=== PATIENT | female | born 1960 | race Caucasian/White ===

== ENCOUNTER 2025-01-18 10:36 | Outpatient (REF) | payer OTHER, SELFPAY ==
[2025-01-18 12:59] LABS: MANUAL DIFF FLAG NO
[2025-01-18 13:21] LABS: Basophils Absolute Auto 0.1 X10*3/uL (0.0-0.2); Basophils Percent Auto 0.6 % (0-2); Eosinophils Percent Auto 0.4 % (0-4); Hematocrit 41.5 % (37.0-47.0); Hemoglobin 13.6 g/dl (12.0-16.0); Imm Gran Abs Auto 0.02 X10*3/uL (0.00-0.03); Imm Gran Pct Auto 0.2 % (0.0-0.4); Lymphocytes Absolute Auto 0.8 X10*3/uL (1.2-4.9); Lymphocytes Percent Auto 9.4 % (20-40); Mean Corpuscular HGB Conc 32.8 g/dl (31.0-35.0); Mean Corpuscular Hemoglobin 28.8 pg (27.0-33.0); Mean Corpuscular Volume 87.9 fL (80.0-98.0); Mean Platelet Volume 9.4 fL (9.4-12.3); Monocytes Absolute Auto 0.7 X10*3/uL (0.1-1.2); Monocytes Percent Auto 8.1 % (2-11); Neutrophils Absolute Auto 6.9 x10*3/uL (2.0-8.3); Neutrophils Percent Auto 81.3 % (45-73); Platelet Count 443 X10*3/uL (160-400); Red Blood Count 4.72 X10*6/uL (4.20-5.50); Red Cell Distribution Width 11.9 % (11.0-16.0); White Blood Count 8.5 X10*3/uL (4.8-10.8)
[2025-01-18 13:43] LABS: Alanine Aminotransferase 46 U/L (0-31); Albumin Level 3.9 g/dL (3.5-5.0); Alkaline Phosphatase 134 U/L (39-117); Anion Gap 12 (12-20); Aspartate Amino Transferase 58 U/L (5-31); Bilirubin Direct 0.5 mg/dL (0.0-0.5); Bilirubin Total 1.1 mg/dL (0.0-1.0); Blood Urea Nitrogen 5 mg/dL (9-16); C Reactive Protein 2.03 mg/dL (< or = 0.50); Calcium 8.9 mg/dL (8.4-10.2); Carbon Dioxide 27 mmol/L (22-29); Chloride 103 mmol/L (96-108); Estimated Glomerular Filt Rate > 60; Glucose Random 110 mg/dL (60-115); Magnesium 2.1 mg/dL (1.6-2.6); Potassium 3.8 mmol/L (3.3-5.1); Sodium 138 mmol/L (135-145); TSH reflex Free T4 0.98 uIU/mL (0.32-4.0); Total Protein 7.5 g/dL (6.5-8.0); Vitamin D 25-OH Total 7.4 ng/mL (>30)
[2025-01-18 14:07] LABS: Estimated Average Glucose 97 mg/dL; Hemoglobin A1C 117.2712 umol/L
[2025-01-18 14:14] LABS: Erythrocyte Sedimentation Rate 38 MM/HR (0-20)
[2025-01-18 14:21] LABS: Folate 7.7 ng/mL (> or = 4.0); Vitamin B12 468 pg/mL (200-900)
== END 2025-01-18 10:37 | disposition home or self-care (01) ==
LOC: HO.HMGCLDS 10:36
PROVIDERS: PCP Internal Medicine; Visit Provider Physician Assistant Medical
DX: Z76.89 Persons encountering health services in other specified circumstances (principal); R07.89 Other chest pain; Z13.1 Encounter for screening for diabetes mellitus
CPT/HCPCS: 36415; 80053; 82248; 82306; 82550; 82607; 82746; 83036; 83735; 84443; 85025; 85652; 86140; 93005; 96127

== ENCOUNTER 2025-01-18 10:36 | Outpatient (AMB) | payer OTHER, SELFPAY ==
--- NOTE | 2025-01-18 10:48 | MHC.PC.OV ---
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 Accompanied by: Self / Same As Patient Allergies sulfamethoxazole [From Bactrim] Allergy (Mild, Verified 01/18/25 11:10) Vomiting trimethoprim [From Bactrim] Allergy (Mild, Verified 01/18/25 11:10) Vomiting vancomycin Allergy (Mild, Verified 01/18/25 11:10) Palpitations Penicillins Allergy (Unknown, Verified 01/18/25 11:10) Unknown Medication List - Last Reconciled 01/18/25 by Omayra Carter PA-C No Known Home Meds Tobacco use date assessed: 01/18/25 Dental Screening Dental Screen Date: 01/18/25 Did you have a dental visit in the last 12 months?: No Did you have a dental problem in the last 6 months where you did not have access to dental care?: No Was dental information given to patient?: Patient has dentist HPI establish care; recurring chest tightness HPI Details This is a 64-year-old female presenting with chest pain and associated symptoms. The pain began abruptly waking her from her sleep and was described as severe, with her heart and chest feeling as though they were in a vice-like criminal justice instructor. Accompanying symptoms include nausea, vomiting, hot flashes and clamminess, which lasted until the afternoon of the same day. She reports this was on Saturday [place] which lasted approximately 2-3 days. She reports that similar episodes have occurred in the past often during times of high stress. For 2 days following the acute pain, the patient experienced chest pressure, feeling as though there was in ?air bubble? sensation. Her diet was significantly limited during this period. She also notices persistent fatigue and lack of motivation that developed after the episode, describing significant tiredness that is uncharacteristic for her. She denies any chest pain at this time. She reports the chest pain has not returned since last week Saturday. She denies any of the symptoms returning since last week Saturday. Although she reports she still has significant fatigue and no energy to do anything at this time. She reports ?I feel like something is wrong?. She reports intermittent lightheadedness along with this intermittent chest pain. She denies any dizziness at this time, paresthesias, jaw pain, chest pain at this time, shortness of breath, dyspnea on exertion, orthopnea, abdominal pain, back or flank pain, lower extremity edema or calf tenderness, rashes, recent falls or trauma or any other symptoms complaints or concerns related to this. Social History - Cardiovascular: Reports intermittent chest pain; Denies leg swelling or shortness of breath with activity or at rest. - Gastrointestinal: Reports nausea and vomiting during the episode; Denies abdominal pain or changes in bowel habits. - General: Reports fatigue, lack of motivation; Denies fever or unexplained weight loss. - Neurological: Denies numbness, tingling, or dizziness. - Psychiatric: Reports stress and feeling overwhelmed. [facility] Medical History Measles Heart murmur Establishing care with new doctor, encounter for Chest pressure Family History Father No problems noted. Mother Cancer Breast cancer Social History Housing: House Alcohol intake: current Alcohol intake frequency: does not drink Patient Tobacco Use Status: Never used Tobacco service: No Current occupational status: retired Cognitive needs: No Hearing needs: No Vision needs: Yes (rx glasses) Questionnaire PHQ-9 Over the last 2 weeks, how often have you been bothered by any of the following problems? 1. Little interest or pleasure in doing things: not at all 2. Feeling down, depressed, or hopeless: not at all 3. Trouble falling or staying asleep, or sleeping too much: not at all 4. Feeling tired or having little energy: not at all 5. Poor appetite or overeating: not at all 6. Feeling bad about yourself - or that you are a failure or have let yourself or your family down: not at all 7. Trouble concentrating on things, such as reading the newspaper or watching television: not at all 8. Moving or speaking so slowly that other people could have noticed. Or the opposite - being so fidgety or restless that you have been moving around a lot more than usual: not at all 9. Thoughts that you would be better off or of hurting yourself in some way: not at all Total score: 0 Depression Screening Interpretation: Negative Depression Screening Done: Yes 65040 - PHQ-9 Billing: Yes Source: Developed by Drs. Eric Cortes, Bebe Ortiz, Franklyn Sandy and colleagues, with an educational frank from [employer] [address]. Thrive Questionnaire Date Thrive assessed: 01/18/25 I am a: Patient What is your living situation today?: I have a steady place to live Within the past 12 months, did the food you bought not last and you didn't have the money to get more?: Never true Within the past 12 months, did you worry whether your food would run out before you got money to buy more?: Never true Do you have trouble paying for medicines?: No Do you have trouble getting transportation to medical appointments?: No Do you have trouble paying your heating and electricity bill?: No Do you have trouble taking care of your child, family member or friend?: No Do you have trouble with day-to-day activities such as bathing, preparing meals, shopping, managing finances, etc.?: No Are you currently unemployed and looking for a job?: No Are you interested in more education?: No Please select the resources that you would like help with: None THRIVE Score: 0 AUDIT C Alcohol Use Questionnaire (AUDIT-C) 1. How often do you have a drink containing alcohol?: Never 3. How often do you have six or more drinks on one occasion?: Never Total Score: 0 Score Reviewed/Action Taken: No DARIUSZ-7 AMB Questionnaire DARIUSZ-7 Date DARIUSZ - 7 assessed: 01/18/25 Feeling nervous, anxious, or on edge: 3 = Nearly every day Not being able to stop or control worryin = More than half the days Worrying too much about different things: 3 = Nearly every day Trouble relaxin = Several days Being so restless that it is hard to sit still: 1 = Several days Becoming easily annoyed or irritable: 1 = Several days Feeling afraid as if something awful might happen: 1 = Several days Total DARIUSZ-7 score (0-4 normal; 5-9 mild; 10-14 moderate; 15-21 severe): 12 Source: Developed by Drs. Eric Cortes, Bebe Ortiz, Franklyn Sandy and colleagues, with an educational frank from [employer] [address]. DARIUSZ-7 Assessment Billing DARIUSZ-7 Assessment Tool: DARIUSZ-7 Assessment 98838 Review of Systems Const Details: - Cardiovascular: Reports chest pain; Denies leg swelling or shortness of breath with activity or at rest. - Gastrointestinal: Reports nausea and vomiting during the episode; Denies abdominal pain or changes in bowel habits. - General: Reports fatigue, lack of motivation; Denies fever or unexplained weight loss. - Neurological: Denies numbness, tingling, or dizziness. - Psychiatric: Reports stress and feeling overwhelmed. Physical exam (Primary Care) Vital Signs: Last Vital Signs Temp 98.2 F 01/18/25 10:53 Pulse 110 H 01/18/25 10:53 Resp 16 01/18/25 10:53 BP 134/66 01/18/25 10:53 Pulse Ox 98 01/18/25 10:53 Oxygen Delivery Method Room Air 01/18/25 10:53 Care Plan Goal for BP management: 130/90 at Goal BMI result Body Mass Index 30.9 BMI Assessment/Plan discussion: High BMI High, discussed plan: lifestyle, weight reduction, dietary, physical activity and alcohol moderation Tobacco/Smoking Status: Tobacco use Status Tobacco use date assessed 01/18/25 01/18/25 10:53 Patient Tobacco Use Status Never used Tobacco 01/18/25 11:01 PHQ-9: PHQ-9 Score PHQ-9: Total score 0 01/18/25 11:12 Depression Screening Interpretation: Negative Thrive Assessment: Date of Thrive Assessment Date Thrive assessed 01/18/25 01/18/25 10:53 Const Other: Appearance: Alert. Oriented X3. No acute distress. Head: Normal external exam. Normocephalic. Atraumatic. Eyes: Pupils are equal, round, and reactive to light. Extraocular movements intact. Conjunctiva and sclera normal. Eyelids normal. Ears: External auditory canal normal. Tympanic membranes normal. Throat: Pharynx normal. Uvula midline. Moist mucous membranes. Neck: Normal inspection. Neck supple. Full range of motion. No adenopathy. Thyroid Normal. No meningeal signs. No neck mass noted. Cardiovascular: Heart rate is fast. Heart sound normal. No murmurs noted. Pulses normal throughout. Respiratory: No respiratory distress. Painless inspiration. Breath sounds normal. No wheezes/rales/rhonchi noted. Chest nontender. No accessory muscle usage noted or decreased air movement noted. Abdomen: Soft and nontender. Bowel sounds normal in all 4 quadrants. No distention noted. No organomegaly noted. No visible injury noted. Back: No costovertebral angle tenderness. Full range of motion noted. Skin: Skin warm and dry. Normal skin color. Normal skin turgor. No rashes/lesions/lacerations noted. Extremities: No lower extremity edema. Extremities exhibit normal range of motion. Extremities nontender. Neuro: Oriented X 3. No motor deficit. No sensory deficit. Reflexes normal. Coding Level of Care Code New Pt Level 4 (53526) Complex EM visit Add On G2211 Diagnoses Establishing care with new doctor, encounter for Z76.89 Chest pressure R07.89 Additional Codes DARIUSZ-7 Assessment Billing - DARIUSZ-7 Assessment Tool: DARIUSZ-7 Assessment 70766 ([id number]) PHQ-9 - 20671 - PHQ-9 Billing: Yes ([id number]) Assessment & Plan Assessment & Plan (1) Establishing care with new doctor, encounter for: Code(s): Z76.89 - Persons encountering health services in other specified circumstances Category: Medical Plan: Patient has not seen a primary care provider in over 30 years. Will order labs, EKG, echocardiogram, stress test and patient to return in 1 month for further evaluation and management. (2) Chest pressure: Code(s): R07.89 - Other chest pain Category: Medical Plan: An Electrocardiogram (EKG) will be performed to evaluate cardiac function. Blood work will be conducted to check for markers indicating cardiac stress. The patient is advised to seek immediate care if another episode of chest pain occurs. Is intermittent not present at this time and stable will continue to monitor. Patient advised to go to the emergency department if chest pain and other symptoms returned. Patient understands. Plan Plan Patient was informed and verbally consented to the use of an ambient scribe for clinic note documentation during this visit. 1. Chest Pain An Electrocardiogram (EKG) will be performed to evaluate cardiac function. Blood work will be conducted to check for markers indicating cardiac stress. The patient is advised to seek immediate care if another episode of chest pain occurs. During the visit, I discussed with the patient that the chest pain episodes, especially those waking her from sleep, raise concerns for potential cardiac issues. We reviewed the necessity of performing an EKG and related blood tests to rule out cardiac involvement. I emphasized the importance of visiting the Emergency Room promptly should she experience a similar severe episode. We also talked about stress as a potential trigger, given her caregiving responsibilities, and the need for lifestyle adjustments focusing on self-care. Orders: Orders Hemoglobin A1c Today Z00.00 - Encounter for general adult medical examination without abnormal findings TSH reflex Free T4 Today Z00.00 - Encounter for general adult medical examination without abnormal findings Vitamin D 25-OH Total Today Z00.00 - Encounter for general adult medical examination without abnormal findings Vitamin B12 and Folate Today Z00.00 - Encounter for general adult medical examination without abnormal findings C Reactive Protein Today Z00.00 - Encounter for general adult medical examination without abnormal findings CA stress test Today R01.1 - Cardiac murmur, unspecified, R07.89 - Other chest pain AMB EKG-In Office Today R07.89 - Other chest pain, Z76.89 - Persons encountering health services in other specified circumstances Complete Blood Count Auto Diff Today Z00.00 - Encounter for general adult medical examination without abnormal findings Liver Panel Today Z00.00 - Encounter for general adult medical examination without abnormal findings Comprehensive Met. Panel Today Z00.00 - Encounter for general adult medical examination without abnormal findings Magnesium Today Z00.00 - Encounter for general adult medical examination without abnormal findings Erythrocyte Sedimentation Rate Today Z00.00 - Encounter for general adult medical examination without abnormal findings Creatine Kinase Total Today Z00.00 - Encounter for general adult medical examination without abnormal findings CA echo transthoracic complete Today R01.1 - Cardiac murmur, unspecified, R07.89 - Other chest pain XR chest 2V Today R01.1 - Cardiac murmur, unspecified, R07.89 - Other chest pain US carotid duplex BI Today R01.1 - Cardiac murmur, unspecified, R07.89 - Other chest pain Medications: New aspirin 325 mg PO DAILY 90 tabs 1RF Patient Instructions: - Seek immediate medical care if chest pain recurs, particularly if it is severe or wakes you from sleep. - Follow through with scheduled EKG and blood testing. - Reduce stress and focus on self-care. - Maintain a balanced diet and avoid fast food. - Report any new or worsening symptoms immediately.
[2025-01-18 10:53] VITALS: BP 134/66; PULSE 110; RESP 16; TEMP 36.8; O2SAT 98; BMI 30.9
== END 2025-01-18 11:46 | disposition home or self-care (01) ==
LOC: HO.HMCSH 10:36
PROVIDERS: PCP Internal Medicine; Visit Provider Physician Assistant Medical
DX: Z76.89 Persons encountering health services in other specified circumstances (principal); R07.89 Other chest pain

== ENCOUNTER 2025-02-04 12:50 | Outpatient (REF) | payer OTHER, SELFPAY ==
--- NOTE | ~2025-02-04 | US_ITS ---
EXAMINATION: BILATERAL CAROTID ULTRASOUND WITH DOPPLER HISTORY: R01.1 - Cardiac murmur, unspecified COMPARISON: There are no prior studies for comparison. TECHNIQUE: Real time and Color and Spectral doppler ultrasonography of the carotid and vertebral arteries was performed in multiple planes. FINDINGS: No significant plaque is seen in either internal carotid artery. VERTEBRAL FLOW DIRECTION: Antegrade bilaterally. PEAK SYSTOLIC VELOCITIES (in cm/sec): RIGHT: CCA: Prox: 92 Dist: 151 ICA: Prox: 110 Mid: 105 Dist: 102 ICA/CCA Ratio: 0.73 ECA: 127 Peak ICA end diastolic velocity (EDV): 40 LEFT: CCA: Prox: 149 Dist: 112 ICA: Prox: 97 Mid: 124 Dist: 112 ICA/CCA Ratio: 0.83 ECA: 86 Peak ICA end diastolic velocity (EDV): 40 US/US carotid duplex BI IMPRESSION: Unremarkable carotid ultrasound. Electronically signed by: Eric Knutson MD 02/04/2025 01:45 PM EDT
--- NOTE | ~2025-02-04 | XR_ITS ---
EXAMINATION: XR CHEST 2 VIEWS HISTORY: R01.1 - Cardiac murmur, unspecified COMPARISON: There are no prior studies for comparison. FINDINGS: PA and lateral views of the chest are submitted. The lungs are expanded and clear. There is no pleural effusion, pneumothorax, or pulmonary vascular congestion. The heart is normal in size. There is levoscoliosis of the upper thoracic spine. XR/XR chest 2V IMPRESSION: Clear lungs. Electronically signed by: Eric Knutson MD 02/04/2025 02:19 PM EDT
== END 2025-02-04 12:51 | disposition home or self-care (01) ==
LOC: HO.HMGCX 12:50
PROVIDERS: PCP Internal Medicine; Visit Provider Physician Assistant Medical
DX: R01.1 Cardiac murmur, unspecified (principal); R07.89 Other chest pain; I65.29 Occlusion and stenosis of unspecified carotid artery; I70.90 Unspecified atherosclerosis; R42 Dizziness and giddiness; R55 Syncope and collapse; R09.89 Other specified symptoms and signs involving the circulatory and respiratory systems; R22.1 Localized swelling, mass and lump, neck
CPT/HCPCS: 71046; 93880

== ENCOUNTER → 2025-02-04 12:55 | Outpatient (BNV) | payer OTHER, SELFPAY | PROVIDERS: PCP Internal Medicine; Visit Provider Radiology Diagnostic Radiology | DX: R01.1 Cardiac murmur, unspecified (principal); M41.34 Thoracogenic scoliosis, thoracic region | CPT/HCPCS: 71046; 93880 ==

== ENCOUNTER → 2025-02-11 13:40 | Outpatient (REF) | payer OTHER, SELFPAY ==
--- NOTE | 2025-02-11 13:42 | CA_ITS ---
Transthoracic Echocardiogram Patient (Last, First, Middle): Karen Cotton, Gender: Female Date of : 1960 Age: 64 Procedure Date: 02/11/2025 Procedure Type: Transthoracic Echocardiogram Location: OP Height: 149.86 cm Weight: 69.4 kg BSA: 1.65 m2 Heart Rate: bpm BP: 134 / 66 mmHg Campaign Marketing Manager: MARCEL Referring MD: Omayra Carter PA-C Classification Case Manager: Jose Antonio Glover MD Symptoms: R01.1 - Cardiac murmur, unspecified Study Quality: Fair ECG Rhythm: Sinus Conclusions: - 1. Normal LV ejection fraction 55-60% with grade 1 diastolic dysfunction 2. Normal cardiac valvular Dopplers 3. Normal RV systolic pressure 4. No gross pericardial effusion Findings Left Ventricle Normal left ventricular size, thickness, and systolic function. The visually estimated ejection fraction is between 55-60%. Spectral Doppler is indicative of an impaired relaxation filling pattern. E/E prime ratio is <8, consistent with normal filling pressures. Evidence suggests grade I (mild) diastolic dysfunction. Right Ventricle Normal right ventricular cavity size and systolic function. Atria Both atria are normal in size. Interatrial shunt cannot be excluded. Aortic Valve The aortic valve structure and function is likely normal. There is no aortic valve stenosis. There is no aortic valve regurgitation. Mitral Valve Likely normal mitral valve structure and function. There is trace mitral valve regurgitation. There is no mitral valve stenosis. Pulmonic Valve The pulmonic valve was not well visualized. Tricuspid Valve Likely normal tricuspid valve structure and function. There is trace tricuspid valve regurgitation. The right ventricular systolic pressure is normal. The right ventricular systolic pressure is 28 mmHg. Normal right atrial pressure. There is no evidence of pulmonary hypertension. Great Vessels All visible segments of the aorta are normal in size. The pulmonary artery was not well visualized. There is no dilatation of the ascending aorta. Venous The inferior vena cava is normal in size and collapses greater than 50% with inspiration. Pericardium/Pleural There is no evidence of pericardial effusion. Prior Study Comparison No prior study available for comparison. Measurements 2D Linear Measurements IVSd: 0.80 0.6-0.9/0.6-1.0 cm LVIDd: 3.94 3.9-5.3/4.2-5.9 cm LVIDd Index: 2.39 2.4-3.2/2.2-3.1 cm/m2 LVIDs: 2.76 2.0-3.6 cm LVPWd: 0.56 0.7-1.1 cm LA Diam: 3.10 2.7-3.8/3.0-4.0 cm LAIDs Index: 1.88 1.5-2.3 cm/m2 LV Mass: 91.13 67-162/88-224 g LV Mass Index: 55.23 43-95/49-115 g/m2 LVOT Diam: 1.90 3.0+(-)1.3 cm 2D Systolic Function EF 4C: 53.60 >55% EF 2C: 58.60 >55% EF BiP: 56.60 >55% Mitral Valve MV Pk E: 0.89 MV PK A: 0.81 MV Decel Time: 151.00 E/A: 1.10 E'Lateral: 9.90 E'Medial: 9.68 E/E' Med: 9.20 E/E' Lat: 9.00 PHT: 44.00 MVA PHT: 5.00 Decel Yates: 5.90 Aortic Valve AoV Pk Narciso: 1.43 AoV Mn Narciso: 0.96 AoV VTI: 0.32 AoV Pk Grad: 8.00 Aov Mn Grad: 4.00 TAY Cont.VTI: 1.84 LVOT LVOT Pk Narciso: 0.85 LVOT Mn Narciso: 0.60 LVOT VTI: 0.21 LVOT Pk Grad: 3.00 LVOT Mn Grad: 2.00 LVOT Diam: 1.90 LVOT Area: 2.84 Diastolic Function MV Pk E: 0.89 MV Pk A: 0.81 E/A: 1.10 E'Medial: 9.68 E/E' Med: 9.20 E' Laterial: 9.90 E/E' Lat: 9.00 Right Ventricle TAPSE (mm): 20.80 TVS' Narciso: 10.40 Tricuspid Valve TR Pk Narciso: 2.50 TR Pk Grad: 25.00 RA Press: 3.00 RVSP: 28.00 Great Vessels Aorta Sinus of Valsalva: 2.22 2.0-3.[address] Ridge: 1.92 1.7-3.4 cm Ao Asc: 2.50 2.1-3.4 cm Ao Arch: 2.40 Updated in Other Vendor System with Status of Final Jose Antonio Glover MD electronically signed on 02/11/2025 4:07:06 PM with status of Final
== END ==
LOC: HO.CARD 13:40
PROVIDERS: Visit Provider Physician Assistant Medical
DX: R01.1 Cardiac murmur, unspecified (principal); R07.89 Other chest pain
CPT/HCPCS: 93306

== ENCOUNTER → 2025-02-11 13:42 | Outpatient (BNV) | payer OTHER, SELFPAY | PROVIDERS: Visit Provider Internal Medicine Cardiovascular Disease | DX: I51.89 Other ill-defined heart diseases (principal); R01.1 Cardiac murmur, unspecified | CPT/HCPCS: 93306 ==

== ENCOUNTER → 2025-03-01 10:19 | Outpatient (REF) | payer OTHER, SELFPAY ==
--- NOTE | 2025-03-01 10:22 | CA_ITS ---
Acquisition Time: 2025-03-01 10:27:32 Total Exercise Time: 00:05:01 Test Indications: CP Medications: SEE H&P Protocol: ISABELL Max HR: 255 BPM 162% of Pred: 157 BPM Max BP: 150/60 mmHG Max Work Load: 4.6 METS Exercise stress test with exercise 5 mins 1 sec of Isaebll Protocol, held at Stage 1 due to very brisk HR, achieving 110% MPHR, with reports of mild SOB, no chest pain, with 27 beats of NSVT- asymptomatic, with hypotensive response during exercise, that improved in recovery. Without any EKG changes meeting criteria for ichemia. In recovery, breathing returned to baseline. Will expedite pt's office visit with Cardiology. Test reviewed with Dr. Núñez. Referred By: Omayra Carter Electronically Signed By: Odell Vila
== END ==
LOC: HO.CARD 10:19
PROVIDERS: PCP Internal Medicine; Visit Provider Physician Assistant Medical
DX: R07.89 Other chest pain (principal); R01.1 Cardiac murmur, unspecified
CPT/HCPCS: 93017

== ENCOUNTER → 2025-03-01 10:22 | Outpatient (BNV) | payer OTHER, SELFPAY | PROVIDERS: PCP Internal Medicine | DX: R06.02 Shortness of breath (principal); I47.20 Ventricular tachycardia, unspecified | CPT/HCPCS: 93016; 93018 ==

== ENCOUNTER → 2025-03-04 07:25 | Outpatient (REF) | payer OTHER, SELFPAY | LOC: HO.CARD 07:25 | PROVIDERS: Visit Provider Physician Assistant Medical | DX: R07.89 Other chest pain (principal) | CPT/HCPCS: 93242 ==

== ENCOUNTER → 2025-03-04 07:28 | Outpatient (BNV) | payer OTHER, SELFPAY | PROVIDERS: Visit Provider Internal Medicine | DX: I47.10 Supraventricular tachycardia, unspecified (principal); I49.3 Ventricular premature depolarization | CPT/HCPCS: 93244 ==

== ENCOUNTER 2025-03-08 14:43 | Outpatient (AMB) | payer OTHER, SELFPAY ==
[2025-03-08 14:49] VITALS: BP 118/62; PULSE 78; BMI 31.2
--- NOTE | 2025-03-08 14:49 | A.OFFVIS_ITS ---
Vital Signs 03/08/25 14:49 Height 4 ft 11 in Weight 154 lb 5.177 oz BMI 31.2 BP 118/62 Blood Pressure Location Lt brachial Position Sitting Pulse 78 Pulse Source Pulse Oximeter Intake Visit Reasons: [employer]/ Omayra Carter/ abn ekgs Allergies sulfamethoxazole [From Bactrim] Allergy (Mild, Verified 01/19/25 17:10) Vomiting trimethoprim [From Bactrim] Allergy (Mild, Verified 01/19/25 17:10) Vomiting vancomycin Allergy (Mild, Verified 01/19/25 17:10) Palpitations aspirin Allergy (Unknown, Verified 01/19/25 17:10) Unknown Penicillins Allergy (Unknown, Verified 01/19/25 17:10) Unknown Medication List - Last Reconciled 03/08/25 by Obdulio Núñez MD cholecalciferol (vitamin D3) 25 mcg PO DAILY HPI Comments Details: Karen is here for consultation regarding chest discomfort and palpitations. No previous cardiac history. No known coronary disease myocardial infarction or cardiomyopathy. However, the child she was apparently told to have a hole in the heart. She has been having episodes of squeezing sensation in the chest that has been going on for a long time, months and possibly years. However, they almost always happen only at nighttime and she has never had any daytime episodes. She also gets sensations of heart fluttering at different times which can happen during the day or night. No clear exertional patterns for any of her symptoms. She underwent a recent ETT when there was question of ventricular tachycardia during the test but she herself did not really have any overt sympto ms from that. She has been referred here for further evaluation. [facility] Medical History (Updated 03/08/25 @ 15:16 by Obdulio Núñez MD) Diastolic dysfunction Vitamin D deficiency Measles Establishing care with new doctor, encounter for Chest pressure Family History Father No problems noted. Mother Cancer Breast cancer Social History Housing: House Alcohol intake: current Alcohol intake frequency: does not drink Patient Tobacco Use Status: Never used Tobacco service: No Current occupational status: retired Cognitive needs: No Hearing needs: No Vision needs: Yes (rx glasses) Review of Systems Const Denies weakness ENT Denies dizziness Card Denies chest pain, Denies chest pain with activity, Denies syncope, Denies rapid heart rate, Denies pedal edema, Denies edema, Denies leg edema, Denies lightheadedness, Reports palpitations, Denies dyspnea, Denies dyspnea on exertio n and Denies orthopnea Resp Denies cough, Denies dyspnea and Denies dyspnea on exertion GI Denies hematochezia and Denies change in stool character Musc Denies abnormal gait, Denies muscle cramps, Denies muscle weakness, Denies numbness, Denies radiating pain into limb and Denies tingling Neuro Denies abnormal gait, Denies dizziness, Denies syncope, Denies numbness, Denies tingling and Denies weakness Endo Reports palpitations Physical Exam Vital Signs: Last Vital Signs Pulse 78 03/08/25 14:49 BP 118/62 03/08/25 14:49 BMI result Body Mass Index 31.2 Const General: comfortable and no acute distress Orientation/consciousness: patient oriented x3 HEENT Other: Unremarkable Head: Yes normal to inspection Neck Neck: Yes normal visual inspection Chest Chest palpation & inspection: normal inspection of the chest Resp Auscultation: clear to auscultation bilaterally Cardio Palpation: normal PMI Heart sounds: S1 normal heart sound present, S2 normal heart sound present, no gallops, no murmurs and no rubs GI Palpation (GI): Soft to palpation Back/Spine/Pelvis Other: unremarkable Skin General skin exam: no rashes or lesions noted Neuro General: patient oriented x3 Extrem General: Yes normal to inspection Psych Mental Status: mental status grossly normal Assessment & Plan Assessment & Plan (1) Chest pressure: Code(s): R07.89 - Other chest pain Category: Medical Plan: Atypical symptoms as she reports only at nighttime but not during the day or with physical exertion. During the ETT, she had a brisk heart rate response and some shortness of breath but no chest pain. No EKG evidence of ischemia. Hypotensive response was noted during exercise but improved in recovery. We will repeat with perfusion imaging. (2) NSVT (nonsustained ventricular tachycardia): Code(s): I47.29 - Other ventricular tachycardia Category: Medical Plan: Episode noted during stress testing. 27 beats. Holter monitor has already been completed and we will follow up on that. In the echocardiogram, preserved LVEF of 55-60%. No significant valvular findings and otherwise unremarkable., Plan We will follow-up in a few weeks stress test and Holter have been completed and reviewed. Discussion Notes I discussed with the patient about her nighttime chest pains, emphasizing the need for further diagnostic testing to understand the cause, including potential ischemic heart disease or arrhythmias. I explained the benefits of the nuclear stress test in assessing cardiac function and the monitor for capturing arrhythmias. We addressed the risks of potential coronary artery disease and the importance of timely diagnosis. The patient agreed with the suggested diagnostic approach. We reviewed the importance of maintaining regular physical activity and weight management as part of cardiovascular health. Patient was informed and verbally consented to the use of an ambient scribe for clinic note documentation during this visit. Orders: Orders NM cardiolite stress test Today I47.29 - Other ventricular tachycardia, R07.2 - Precordial pain CA stress test Today I47.29 - Other ventricular tachycardia, R07.2 - Precordial pain Patient Instructions: - Continue your regular physical activities. - Monitor for and record any episodes of chest pain or increased heart rate. - Report any worsening symptoms or if the nocturnal pain becomes more frequent. Seek emergency care as necessary. - Complete the planned nuclear stress test as scheduled. - Follow up after the tests for further evaluation and discuss results. Coding Level of Care Code New Pt Level 4 (62752) Complex EM visit Add On G2211 Diagnoses Chest pressure R07.89 NSVT (nonsustained ventricular tachycardia) I47.29
== END 2025-03-08 15:28 | disposition home or self-care (01) ==
LOC: HO.HCS 14:44
PROVIDERS: PCP Internal Medicine; Visit Provider Internal Medicine
DX: R07.89 Other chest pain (principal); I47.29 Other ventricular tachycardia
CPT/HCPCS: 99204

== ENCOUNTER → 2025-03-08 14:43 | Outpatient (BNVA) | payer OTHER, SELFPAY | PROVIDERS: PCP Internal Medicine; Visit Provider Internal Medicine ==

== ENCOUNTER → 2025-03-22 09:49 | Outpatient (REF) | payer OTHER, SELFPAY ==
--- NOTE | ~2025-03-22 | NM_ITS ---
EXERCISE MYOCARDIAL PERFUSION STUDY INDICATION: Precordial chest pain to evaluate for myocardial ischemia TECHNIQUE: The patient was brought in for an exercise perfusion study on March 22, 2025. Patient performed exercise as per Moises protocol and was injected 25 mCi of sestamibi once target heart rate was achieved. Images were obtained using the SPECT gamma camera interlaced with the gating device. Images were obtained in supine position. Resting perfusion study was performed on March 23, 2025. Patient was administered 25 mCi of sestamibi intravenously at rest. Images were then obtained in supine position. Images obtained without without CT attenuation. Total DLP 132 mGy-cm. Images were processed with the software and compared side to side in short axis, horizontal long axis and vertical long axis views. FINDINGS: Raw images were reviewed The stress perfusion study showed both nonattenuated as well as attenuated corrected images show overall normal uptake of radiotracer in all segments of the LV myocardium. Suggestion of left ventricular hypertrophy. The gated study shows normal LV systolic function with calculated LVEF of 66%. LV cavity is normal in size. The gated study shows normal systolic wall thickening and contraction of segments. Resting study shows nonattenuated images show mildly reduced uptake in the lateral as well as moderately reduced uptake and inferoapical wall of the LV myocardium likely related to attenuation artifact. Attenuated corrected show normal uptake of radiotracer in all segments. Gating at rest reveals normal systolic wall motion with ejection fraction at 67%. The findings are consistent with normal myocardial perfusion. NM/NM cardiolite stress test IMPRESSION: 1. Myocardial perfusion imaging study shows normal myocardial perfusion. 2. Gated LVEF is 66%. 3. Transient ischemic dilatation not present. EKG revealed negative for ischemia. Electronically signed by: Jose Antonio Glover MD 03/23/2025 01:16 PM EDT
--- NOTE | 2025-03-22 09:51 | CA_ITS ---
Acquisition Time: 2025-03-22 10:03:17 Total Exercise Time: 00:05:15 Test Indications: CP Medications: SEE H&P Protocol: ULISSES Max HR: 181 BPM 115% of Pred: 157 BPM Max BP: 160/70 mmHG Max Work Load: 4.6 METS Exercise stress test with exercise 5 mins 15 secs of Ulisses Protocol held at Stage 1, with reports of mild SOB, no chest pain, with isolated PACs and PVCs, one atrial run- max 5 beats and two vent couplets, with normotensive response to exercise. Without EKG changes meeting criteria for ischemia. In recovery, breathing returned to baseline. Nuclear images pending. Test reviewed with Dr. Glover. Referred By: Obdulio Núñez Electronically Signed By: Odell Vila
== END ==
LOC: HO.CARD 09:49
PROVIDERS: PCP Internal Medicine; Visit Provider Internal Medicine
DX: I47.29 Other ventricular tachycardia (principal); R07.2 Precordial pain
CPT/HCPCS: 78452; 93017; A9500

== ENCOUNTER → 2025-03-22 09:51 | Outpatient (BNV) | payer OTHER, SELFPAY | PROVIDERS: PCP Internal Medicine | DX: R06.02 Shortness of breath (principal); I49.1 Atrial premature depolarization; I49.3 Ventricular premature depolarization | CPT/HCPCS: 78452; 93016; 93018 ==

== ENCOUNTER 2025-04-05 13:44 | Outpatient (AMB) | payer OTHER, SELFPAY ==
[2025-04-05 13:58] VITALS: BP 114/62; PULSE 92; BMI 32.0
--- NOTE | 2025-04-05 13:58 | A.OFFVIS_ITS ---
Vital Signs 04/05/25 13:58 Height 4 ft 11 in Weight 158 lb 4.67 oz BMI 32.0 BP 114/62 Blood Pressure Location Lt brachial Position Sitting Pulse 92 Pulse Source Pulse Oximeter Intake Visit Reasons: 4 wk follow up/ [facility] Required: No Allergies sulfamethoxazole (From Bactrim) Allergy (Mild, Verified 04/05/25 14:01) Vomiting trimethoprim (From Bactrim) Allergy (Mild, Verified 04/05/25 14:01) Vomiting vancomycin Allergy (Mild, Verified 04/05/25 14:01) Palpitations aspirin Allergy (Unknown, Verified 04/05/25 14:01) Unknown Penicillins Allergy (Unknown, Verified 04/05/25 14:01) Unknown Medication List - Last Reconciled 04/05/25 by Katelynn Chapman NP-C cholecalciferol (vitamin D3) 25 mcg PO DAILY HPI HPI 4 wk follow up/ [facility]: Details: Karen is a 65-year-old female with no significant past medical history who was recently evaluated for report of chest discomfort and heart palpitations. She underwent an exercise stress test and had a 27 beat run of NSVT. She then had a echocardiogram, Holter monitor and nuclear stress test and now presents for follow-up. Today she reports that she has been feeling well overall. She does get episodes that wake her during the night with squeezing in her chest, nausea, vomiting, shaking. She believes these are panic attacks. The episodes have been happening on and off for years. She describes herself as very active and under a lot of stress in her life. She has no chest discomfort in the daytime or symptoms during physical activity. She does not get shortness of breath, PND, orthopnea or edema. No heart palpitations when awake, lightheadedness, presyncope, syncope, falls. [facility] Medical History Diastolic dysfunction Vitamin D deficiency Measles Establishing care with new doctor, encounter for Chest pressure Family History Father No problems noted. Mother Cancer Breast cancer Social History Housing: House Alcohol intake: current Alcohol intake frequency: does not drink Patient Tobacco Use Status: Never used Tobacco service: No Current occupational status: retired Cognitive needs: No Hearing needs: No Vision needs: Yes (rx glasses) Review of Systems Const All systems reviewed & are unremarkable except as noted in HPI and below ENT Denies dizziness Card Denies chest pain, Denies chest pain at rest, Denies chest pain with activity, Denies rapid heart rate, Denies pedal edema, Denies edema, Denies leg edema, Denies lightheadedness, Denies palpitations, Denies dyspnea, Denies dyspnea on exertion and Denies orthopnea Resp Denies cough, Denies dyspnea and Denies dyspnea on exertion GI Denies hematochezia and Denies change in stool character Musc Denies abnormal gait, Denies limited range of motion, Denies muscle cramps, Denies muscle weakness, Denies numbness, Denies radiating pain into limb, Denies stiffness and Denies tingling Neuro Denies abnormal gait, Denies dizziness, Denies numbness and Denies tingling Endo Denies palpitations Physical Exam Vital Signs: Last Vital Signs Pulse 92 04/05/25 13:58 BP 114/62 04/05/25 13:58 BMI result Body Mass Index 32.0 Const General: cooperative, healthy appearing, comfortable and no acute distress Orientation/consciousness: patient oriented x3 Neck Neck: Yes normal visual inspection and Yes no JVD Resp Effort & Inspection: normal respiratory effort Auscultation: clear to auscultation bilaterally, no crackles, no rales, no rhonchi and no wheezes Cardio Rate: regular rate Rhythm: regular rhythm Heart sounds: S1 normal heart sound present, S2 normal heart sound present, no gallops, no murmurs and no rubs Neuro General: patient oriented x3 Extrem General: Yes normal to inspection, No no pedal edema and No calf tenderness Psych Appearance: grossly normal Mental Status: mental status grossly normal Speech and movement: Normal speech and movement present Assessment & Plan Assessment & Plan (1) Chest pressure: Code(s): R07.89 - Other chest pain Category: Medical Plan: Episodes of chest pressure that wake her from sleep with associated symptoms of nausea, vomiting, tremors. No daytime symptoms. Exercise stress test was done 03/01/2025 with exercise 5 minutes with brisk heart rate response, 27 beat NSVT episode, no ischemia. Echocardiogram 02/11/2025 showed EF 55-60%, grade 1 diastolic dysfunction, normal valves. Holter monitor done 03/04/2025 for 3 days shows sinus rhythm with average heart rate 79 beats per minute, rare SVE and ve. Nuclear stress test done 03/22/2025 with exercise just over 5 minutes with no significant arrhythmia, normal myocardial perfusion imaging. Test results reviewed with her in detail. No cardiac finding for her presenting symptom. Joy cooley now feels her symptoms may be panic attacks. She does follow closely with her PCP. (2) NSVT (nonsustained ventricular tachycardia): Code(s): I47.29 - Other ventricular tachycardia Category: Medical Plan: Twenty-seven beat run of NSVT during initial exercise stress test. Echo shows normal EF and nuclear stress test shows no ischemia. She has no recent history of presyncope, syncope. Will start on metoprolol XL 25 mg daily to help with heart rate control. Cardiology follow-up in 3 months, sooner if needed. Plan I discussed with the patient that her heart tests, including the echocardiogram and stress tests, showed normal results, indicating no immediate cardiac concerns. We talked about the possibility of her chest pain being related to panic attacks and the importance of continuing stress management techniques. She did have an episode of fast abnormal heart beating during her first stress test and for this reason we will be starting her on a low dose of medication to lower her heart rate. I recommended a follow-up appointment to keep track of her heart rhythm and overall health. Medications: New metoprolol succinate ER 25 mg PO DAILY 30 tabs 5RF Patient Instructions: - Continue stress management techniques such as walking and gardening. - Start Metoprolol xl 25mg daily - Attend follow-up appointment to monitor heart rhythm. - Report any new or worsening symptoms to the healthcare provider. Patient was informed and verbally consented to the use of an ambient scribe for clinic note documentation during this visit. Visit time spent on chart review, interview, assessment, orders, documentation. Coding Level of Care Code Est Pt Level 4 (96384) Complex EM visit Add On G2211 Diagnoses Chest pressure R07.89 NSVT (nonsustained ventricular tachycardia) I47.29 Time Spent (min) 30
== END 2025-04-05 15:40 | disposition home or self-care (01) ==
LOC: HO.HCS 13:44
PROVIDERS: PCP Internal Medicine; Visit Provider Nurse Practitioner Family
DX: R07.89 Other chest pain (principal); I47.29 Other ventricular tachycardia
CPT/HCPCS: 99214

== ENCOUNTER 2025-06-07 08:57 | Outpatient (AMB) | payer OTHER, SELFPAY ==
[2025-06-07 09:09] VITALS: BP 118/56; PULSE 84; RESP 14; TEMP 36.5; O2SAT 99; BMI 31.7
--- NOTE | 2025-06-07 09:09 | MHC.PC.OV ---
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 Accompanied by: Self / Same As Patient Allergies sulfamethoxazole (From Bactrim) Allergy (Mild, Verified 06/07/25 09:33) Vomiting trimethoprim (From Bactrim) Allergy (Mild, Verified 06/07/25 09:33) Vomiting vancomycin Allergy (Mild, Verified 06/07/25 09:33) Palpitations aspirin Allergy (Unknown, Verified 06/07/25 09:33) Unknown Penicillins Allergy (Unknown, Verified 06/07/25 09:33) Unknown Medication List - Last Reconciled 06/07/25 by Omayra Carter PA-C cholecalciferol (vitamin D3) 25 mcg PO DAILY hydroxyzine HCl 25 mg PO Q8H PRN metoprolol succinate ER 12.5 mg PO DAILY multivitamin 1 tab PO DAILY Tobacco use date assessed: 06/07/25 Dental Screening Dental Screen Date: 01/18/25 HPI f/u cardiology consult HPI Details The patient is a 65-year-old female presenting with a follow-up for her cardiac condition and anxiety management. She has been diagnosed with grade 1 diastolic dysfunction, as noted in her echocardiogram in January 2025, which showed an ejection fraction of 55-60% with normal valves and normal sinus rhythm on Holter monitoring. The patient underwent a nuclear stress test with exercise for over five minutes, which showed no significant arrhythmia or cardiac findings related to her symptoms. The patient reports experiencing severe panic attacks, which she believes are exacerbated by anxiety rather than cardiac issues. She has a history of anxiety since her teens, with episodes of panic attacks that have been severe enough to cause significant distress. The patient also reports a history of vitamin D deficiency, which was identified after a severe panic attack that led to prolonged fatigue. She has since started taking vzcb-ror-grbmdjo vitamin D supplements, which have alleviated her symptoms of tiredness. Social History - Reports difficulty swallowing medications due to childhood trauma. - Takes gpng-[id number] vitamin D and multivitamins. [facility] Medical History Anxiety Diastolic dysfunction Vitamin D deficiency Measles Establishing care with new doctor, encounter for Chest pressure Family History Father No problems noted. Mother Cancer Breast cancer Social History Housing: House Alcohol intake: current Alcohol intake frequency: does not drink Patient Tobacco Use Status: Never used Tobacco service: No Current occupational status: retired Cognitive needs: No Hearing needs: No Vision needs: Yes (rx glasses) Questionnaire PHQ-9 Over the last 2 weeks, how often have you been bothered by any of the following problems? 1. Little interest or pleasure in doing things: not at all 2. Feeling down, depressed, or hopeless: not at all 3. Trouble falling or staying asleep, or sleeping too much: not at all 4. Feeling tired or having little energy: not at all 5. Poor appetite or overeating: not at all 6. Feeling bad about yourself - or that you are a failure or have let yourself or your family down: not at all 7. Trouble concentrating on things, such as reading the newspaper or watching television: not at all 8. Moving or speaking so slowly that other people could have noticed. Or the opposite - being so fidgety or restless that you have been moving around a lot more than usual: not at all 9. Thoughts that you would be better off or of hurting yourself in some way: not at all Total score: 0 Depression Screening Interpretation: Negative Depression Screening Done: Yes 23510 - PHQ-9 Billing: Yes Source: Developed by Drs. Eric Cortes, Bebe Ortiz, Franklyn Sandy and colleagues, with an educational frank from [employer]. Thrive Questionnaire Date Thrive assessed: 01/18/25 I am a: Patient What is your living situation today?: I have a steady place to live Within the past 12 months, did the food you bought not last and you didn't have the money to get more?: Never true Within the past 12 months, did you worry whether your food would run out before you got money to buy more?: Never true Do you have trouble paying for medicines?: No Do you have trouble getting transportation to medical appointments?: No Do you have trouble paying your heating and electricity bill?: No Do you have trouble taking care of your child, family member or friend?: No Do you have trouble with day-to-day activities such as bathing, preparing meals, shopping, managing finances, etc.?: No Are you currently unemployed and looking for a job?: No Are you interested in more education?: No Please select the resources that you would like help with: None THRIVE Score: 0 AUDIT C Alcohol Use Questionnaire (AUDIT-C) 1. How often do you have a drink containing alcohol?: Never 3. How often do you have six or more drinks on one occasion?: Never Total Score: 0 Score Reviewed/Action Taken: No DARIUSZ-7 AMB Questionnaire DARIUSZ-7 Date DARIUSZ - 7 assessed: 01/18/25 Feeling nervous, anxious, or on edge: 3 = Nearly every day Not being able to stop or control worryin = More than half the days Worrying too much about different things: 3 = Nearly every day Trouble relaxin = Several days Being so restless that it is hard to sit still: 1 = Several days Becoming easily annoyed or irritable: 1 = Several days Feeling afraid as if something awful might happen: 1 = Several days Total DARIUSZ-7 score (0-4 normal; 5-9 mild; 10-14 moderate; 15-21 severe): 12 Source: Developed by Drs. Eric Cortes, Bebe Ortiz, Franklyn Sandy and colleagues, with an educational frank from [employer]. DARIUSZ-7 Assessment Billing DARIUSZ-7 Assessment Tool: DARIUSZ-7 Assessment 76492 Review of Systems Const Details: - Cardiovascular: Reports dizziness with higher doses of metoprolol. Denies chest pain or palpitations. - Psychiatric: Reports severe panic attacks and anxiety. Denies depression. - Musculoskeletal: Reports fatigue associated with low vitamin D levels. All systems reviewed & are unremarkable except as noted in HPI and below Physical exam (Primary Care) Vital Signs: Last Vital Signs Temp 97.7 F 06/07/25 09:09 Pulse 84 06/07/25 09:09 Resp 14 06/07/25 09:09 BP 118/56 L 06/07/25 09:09 Pulse Ox 99 06/07/25 09:09 Oxygen Delivery Method Room Air 06/07/25 09:09 Care Plan Goal for BP management: <140/90 at Goal BMI result Body Mass Index 31.7 BMI Assessment/Plan discussion: High BMI High, discussed plan: lifestyle, weight reduction, dietary, physical activity, alcohol moderation and other Tobacco/Smoking Status: Tobacco use Status Tobacco use date assessed 06/07/25 06/07/25 09:13 Patient Tobacco Use Status Never used Tobacco 06/07/25 09:13 PHQ-9: PHQ-9 Score PHQ-9: Total score 0 06/07/25 09:27 Depression Screening Interpretation: Negative Thrive Assessment: Date of Thrive Assessment Date Thrive assessed 01/18/25 06/07/25 09:13 Const Other: Appearance: Alert. Oriented X3. No acute distress. Head: Normal external exam. Normocephalic. Atraumatic. Eyes: Pupils are equal, round, and reactive to light. Extraocular movements intact. Conjunctiva and sclera normal. Eyelids normal. Throat: Pharynx normal. Uvula midline. Moist mucous membranes. Neck: Normal inspection. Neck supple. Full range of motion. Cardiovascular: Normal heart rate and rhythm. Respiratory: No respiratory distress. Painless inspiration. Back: Full range of motion noted. Skin: Skin warm and dry. Normal skin color. Extremities: Extremities exhibit normal range of motion. Office Procedures Flu Questionnaire Does the patient have a severe egg allergy?: No Does the patient have severe life threatening allergies?: No Does the patient have a fever or illness today?: No Has the patient ever had Guillain-[place] Syndrome?: No Has the patient ever had any past reaction to a flu shot?: No Immunizations Fluarix [id number] (PF) 45 mcg (15 mcg x 3)/0.5 mL IM syringe Performing Provider: Omayra Carter PA-C [facility] [place] [facility] Administered by: AYDEN Cordero on 06/07/25 09:27 Dose Route Admin Location Dispensed Lot Number Expiration Date NDC Lockstitch Front Edge Tape Sewer 0.5 mL IM Left Deltoid 0.5 mL [id number] 03/22/26 [id number] AUTOFACT VIS Given Date VIS Provided VIS Publication Date 06/07/25 Single Vaccine 24 Eligibility Eligibility Date Funding Source Not [facility] Eligible 06/07/25 Private Results Reviewed Results Reviewed: - Echocardiogram (January 2025): Ejection fraction 55-60%, normal valves. - Holter monitor: Normal sinus rhythm, average rate 79 bpm. - Nuclear stress test: No significant arrhythmia, normal pericardial fusion. Coding Level of Care Code Est Pt Level 4 (54888) Complex EM visit Add On G2211 Diagnoses Diastolic dysfunction I51.89 Anxiety F41.9 Vitamin D deficiency E55.9 Additional Codes DARIUSZ-7 Assessment Billing - DARIUSZ-7 Assessment Tool: DARIUSZ-7 Assessment 66700 ([id number]) PHQ-9 - 50773 - PHQ-9 Billing: Yes ([id number]) Assessment & Plan Assessment & Plan (1) Diastolic dysfunction: Code(s): I51.89 - Other ill-defined heart diseases Category: Medical Plan: The patient will continue with metoprolol at a reduced dose of 12.5 mg due to dizziness experienced at higher doses. A follow-up in three months is planned to monitor her response to the medication and overall cardiac health. (2) Anxiety: Code(s): F41.9 - Anxiety disorder, unspecified Category: Medical Plan: The patient will be referred to a therapist or psychiatrist for further evaluation and management of anxiety and panic attacks. Hydroxyzine (Atarax) will be prescribed at a low dose to manage acute anxiety episodes, with instructions to avoid driving due to potential drowsiness. (3) Vitamin D deficiency: Code(s): E55.9 - Vitamin D deficiency, unspecified Category: Medical Plan: The patient will continue taking rtft-yge-apzgspk vitamin D supplements to maintain adequate levels and prevent fatigue. Plan Plan Patient was informed and verbally consented to the use of an ambient scribe for clinic note documentation during this visit. 1. Diastolic Dysfunction, Grade 1 The patient will continue with metoprolol at a reduced dose of 12.5 mg due to dizziness experienced at higher doses. A follow-up in three months is planned to monitor her response to the medication and overall cardiac health. 2. Anxiety The patient will be referred to a therapist or psychiatrist for further evaluation and management of anxiety and panic attacks. Hydroxyzine (Atarax) will be prescribed at a low dose to manage acute anxiety episodes, with instructions to avoid driving due to potential drowsiness. 3. Vitamin D Deficiency The patient will continue taking nqyu-rkc-xtwvimc vitamin D supplements to maintain adequate levels and prevent fatigue. During the visit, we discussed the patient's cardiac health, specifically her grade 1 diastolic dysfunction, and the management of her anxiety symptoms. We agreed on continuing metoprolol at a reduced dose due to dizziness at higher doses and planned a follow-up in three months. I recommended a referral to a therapist or psychiatrist to address her anxiety and prescribed hydroxyzine for acute episodes, advising caution due to potential drowsiness. Orders: Orders Influenza [id number] Immunization Today Z23 - Encounter for immunization Referrals Counseling Referral F41.9 - Anxiety disorder, unspecified Psychiatry Referral F41.9 - Anxiety disorder, unspecified Medications: New hydroxyzine HCl 25 mg PO Q8H PRN 30 tabs 1RF anxiety/panic attacks Patient Instructions: - Continue taking metoprolol at 12.5 mg and monitor for dizziness. - Follow up in three months to assess medication response and cardiac health. - Attend therapy sessions as referred for anxiety management. - Take hydroxyzine as needed for anxiety, avoiding driving due to drowsiness. - Continue nwfh-ggy-ppgureg vitamin D supplements to prevent fatigue.
== END 2025-06-07 09:59 | disposition home or self-care (01) ==
LOC: HO.HMCSH 08:57
PROVIDERS: PCP Internal Medicine; Visit Provider Physician Assistant Medical
DX: I51.89 Other ill-defined heart diseases (principal); F41.9 Anxiety disorder, unspecified; E55.9 Vitamin D deficiency, unspecified; Z23 Encounter for immunization

== ENCOUNTER → 2025-06-07 08:57 | Outpatient (BNVA) | payer OTHER, SELFPAY | PROVIDERS: PCP Internal Medicine; Visit Provider Physician Assistant Medical | DX: F41.0 Panic disorder [episodic paroxysmal anxiety] (principal); F41.9 Anxiety disorder, unspecified; E55.9 Vitamin D deficiency, unspecified; I51.89 Other ill-defined heart diseases; Z23 Encounter for immunization | CPT/HCPCS: 90471; 90656; 96127 ==

== ENCOUNTER 2025-07-14 08:11 | Outpatient (AMB) | payer OTHER, SELFPAY ==
[2025-07-14 08:34] VITALS: BP 110/56; PULSE 64; BMI 31.8
--- NOTE | 2025-07-14 08:34 | A.OFFVIS_ITS ---
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 Accompanied by: Self / Same As Patient Allergies sulfamethoxazole (From Bactrim) Allergy (Mild, Verified 07/14/25 08:36) Vomiting trimethoprim (From Bactrim) Allergy (Mild, Verified 07/14/25 08:36) Vomiting vancomycin Allergy (Mild, Verified 07/14/25 08:36) Palpitations aspirin Allergy (Unknown, Verified 07/14/25 08:36) Unknown Penicillins Allergy (Unknown, Verified 07/14/25 08:36) Unknown Medication List - Last Reconciled 07/14/25 by Obdulio Núñez MD cholecalciferol (vitamin D3) 25 mcg PO DAILY hydroxyzine HCl 25 mg PO Q8H PRN metoprolol succinate ER 12.5 mg PO DAILY multivitamin 1 tab PO DAILY HPI Comments Details: Karen returns for follow-up. In the past, she was seen regarding chest discomfort and palpitations. She underwent a comprehensive workup including echocardiogram, stress test and Holter monitor. During the stress test, she had evidence of NSVT. Then she has been put on a small dose of beta-melissa and she states that her PCP started hydroxyzine. After this, she is much better. She no longer has any symptoms like palpitations or in fact anything of concern. She states she is doing quite well. She believes that lot of her episodes were related to panic attacks and anxiety. [facility] Medical History Anxiety Diastolic dysfunction Vitamin D deficiency Measles Establishing care with new doctor, encounter for Chest pressure Family History Father No problems noted. Mother Cancer Breast cancer Social History Housing: House Alcohol intake: current Alcohol intake frequency: does not drink Patient Tobacco Use Status: Never used Tobacco service: No Current occupational status: retired Cognitive needs: No Hearing needs: No Vision needs: Yes (rx glasses) Review of Systems Const Denies daytime sleepiness, Denies difficulty sleeping, Denies snoring, Denies stops breathing during sleep and Denies weakness Card Denies chest pain, Denies rapid heart rate, Denies irregular heart rhythm, Denies claudication, Denies leg edema, Denies lightheadedness, Denies palpitations, Denies dyspnea, Denies dyspnea on exertion, Denies orthopnea, Denies paroxysmal nocturnal dyspnea and Denies slow heart rate Resp Denies cough, Denies dyspnea, Denies dyspnea on exertion and Denies snoring GI Reports no additional complaints, Denies hematochezia, Denies change in stool character and Denies dyspepsia Musc Denies abnormal gait, Denies muscle weakness and Denies numbness Neuro Denies abnormal gait, Denies numbness and Denies weakness Endo Denies palpitations Physical Exam Vital Signs: Last Vital Signs Pulse 64 07/14/25 08:34 BP 110/56 L 07/14/25 08:34 BMI result Body Mass Index 31.8 Const General: comfortable and no acute distress Orientation/consciousness: patient oriented x3 HEENT Other: Unremarkable Head: Yes normal to inspection Neck Neck: Yes normal visual inspection Chest Chest palpation & inspection: normal inspection of the chest Resp Auscultation: clear to auscultation bilaterally Cardio Palpation: normal PMI Heart sounds: S1 normal heart sound present, S2 normal heart sound present, no gallops, no murmurs and no rubs GI Palpation (GI): Soft to palpation Back/Spine/Pelvis Other: unremarkable Skin General skin exam: no rashes or lesions noted Neuro General: patient oriented x3 Extrem General: Yes normal to inspection Psych Mental Status: mental status grossly normal Assessment & Plan Assessment & Plan (1) Chest pressure: Code(s): R07.89 - Other chest pain Category: Medical Plan: Resolved. Perfusion imaging was unremarkable. Echocardiogram with preserved LVEF. (2) NSVT (nonsustained ventricular tachycardia): Code(s): I47.29 - Other ventricular tachycardia Category: Medical Plan: Episode noted during stress testing. 27 beats. Holter without any concerning findings. No recent palpitations on low-dose beta-blockers. Continue that. We will recheck Holter in a year. Plan Discussion Notes During the visit, we reviewed the cardiac findings, noting that while NSVT was observed during treadmill exercise, the heart monitor did not show significant issues. The plan is to continue the current medication regimen and conduct a follow-up in one year with extended monitoring to gather more comprehensive data. Patient was informed and verbally consented to the use of an ambient scribe for clinic note documentation during this visit. Total time spent including review of data, counseling, documentation, coordination of care-31 minutes. Orders: Orders ECG 14 day holter monitor 1 Year I47.29 - Other ventricular tachycardia Patient Instructions: - Continue taking medications as prescribed. - Monitor for any new or worsening symptoms and report them. - Return for a follow-up appointment in one year for extended heart monitoring. Coding Level of Care Code Est Pt Level 4 (31922) Complex EM visit Add On G2211 Diagnoses Chest pressure R07.89 NSVT (nonsustained ventricular tachycardia) I47.29
== END 2025-07-14 08:51 | disposition home or self-care (01) ==
LOC: HO.HCS 08:11
PROVIDERS: PCP Internal Medicine; Visit Provider Internal Medicine
DX: R07.89 Other chest pain (principal); I47.29 Other ventricular tachycardia
CPT/HCPCS: 99214

== ENCOUNTER 2025-09-09 09:30 | Outpatient (AMB) | payer OTHER, SELFPAY ==
--- NOTE | 2025-09-09 09:37 | A.OFFPC_ITS ---
Vital Signs 09/09/25 09:38 Height 4 ft 11 in Weight 160 lb BMI 32.3 BP 114/53 L Blood Pressure Location Rt brachial Position Sitting Respiration 14 Pulse 76 Pulse Source Pulse Oximeter Temp 97.6 F Temp Source Temporal Artery Scan Pulse Oximetry (%) 99 Oxygen Delivery Method Room Air Intake Visit Reasons: 3 months Senior Executive Assistant Required: No Accompanied by: Self / Same As Patient Allergies sulfamethoxazole (From Bactrim) Allergy (Mild, Verified 09/09/25 11:55) Vomiting trimethoprim (From Bactrim) Allergy (Mild, Verified 09/09/25 11:55) Vomiting vancomycin Allergy (Mild, Verified 09/09/25 11:55) Palpitations aspirin Allergy (Unknown, Verified 09/09/25 11:55) Unknown Penicillins Allergy (Unknown, Verified 09/09/25 11:55) Unknown Medication List - Last Reconciled 09/09/25 by Omayra Carter PA-C cholecalciferol (vitamin D3) 25 mcg PO DAILY hydroxyzine HCl 25 mg PO Q8H PRN mecobalamin (vitamin B12) 1,000 mcg PO DAILY metoprolol succinate ER 12.5 mg PO DAILY multivitamin 1 tab PO DAILY trazodone 50 mg PO BEDTIME PRN Tobacco use date assessed: 06/07/25 Dental Screening Dental Screen Date: 01/18/25 HPI HPI Comments History of Present Illness Details History of Present Illness The patient is a 65-year-old female presenting for a 3-month follow-up visit for management of her chronic conditions and for health maintenance. She has a history of nonsustained ventricular tachycardia (NSVT) and diastolic dysfunction, which was diagnosed after a comprehensive workup including an echocardiogram, stress test, and Holter monitor. Her previous symptoms of dizziness have resolved since her metoprolol dose was reduced by half. She is followed by a food and beverage server, with her next appointment scheduled for June of next year, to be preceded by a 2-3 week Holter monitor. She has a prescription for hydroxyzine to be taken as needed, which she has used twice with good effect. She currently denies palpitations or chest pain. Lab work from the previous December showed a mildly elevated platelet count, an elevated inflammatory marker of 38, and slightly elevated liver enzymes (AST, ALT, alkaline phosphatase) and total bilirubin, with a suspicion for fatty liver as she denies alcohol use. She also has a past history of a very low vitamin D level. Her medical history includes asthma since childhood, which she believes is allergy-based, and a history of extensive environmental allergies. The patient is overdue for mammogram, colonoscopy, and bone density screenings. She has a family history of osteoporosis in her sister but no family history of colon cancer. She reports a new complaint of insomnia, characterized by difficulty staying asleep and frequent awakenings, though she has no trouble falling asleep. Melatonin was not effective, and she sometimes uses Robitussin Nighttime for sleep. Social History - Alcohol Use: The patient denies any al cohol consumption. - Tobacco Use: The patient denies ever s moking. - Diet: She avoids caffeine, including r egular soda and chocolate, due to its effect on her heart. - Weight: She reports an inability to lo se weight and states that her current weight is higher than when she delivered her children. [facility] Medical History (Updated 09/09/25 @ 11:58 by Omayra Carter PA-C) Healthcare maintenance Insomnia Sleep apnea General medical exam Anxiety Diastolic dysfunction Vitamin D deficiency Measles Establishing care with new doctor, encounter for Chest pressure Family History Father No problems noted. Mother Cancer Breast cancer Social History Housing: House Alcohol intake: current Alcohol intake frequency: does not drink Patient Tobacco Use Status: Never used Tobacco service: No Current occupational status: retired Cognitive needs: No Hearing needs: No Vision needs: Yes (rx glasses) Questionnaire PHQ-9 Over the last 2 weeks, how often have you been bothered by any of the following problems? 1. Little interest or pleasure in doing things: not at all 2. Feeling down, depressed, or hopeless: not at all 3. Trouble falling or staying asleep, or sleeping too much: not at all 4. Feeling tired or having little energy: not at all 5. Poor appetite or overeating: not at all 6. Feeling bad about yourself - or that you are a failure or have let yourself or your family down: not at all 7. Trouble concentrating on things, such as reading the newspaper or watching television: not at all 8. Moving or speaking so slowly that other people could have noticed. Or the opposite - being so fidgety or restless that you have been moving around a lot more than usual: not at all 9. Thoughts that you would be better off or of hurting yourself in some way: not at all Total score: 0 Depression Screening Interpretation: Negative Depression Screening Done: Yes 30917 - PHQ-9 Billing: Yes Source: Developed by Drs. Eric Cortes, Bebe Ortiz, Franklyn Sandy and colleagues, with an educational frank from [employer]. Thrive Questionnaire Date Thrive assessed: 01/18/25 I am a: Patient What is your living situation today?: I have a steady place to live Within the past 12 months, did the food you bought not last and you didn't have the money to get more?: Never true Within the past 12 months, did you worry whether your food would run out before you got money to buy more?: Never true Do you have trouble paying for medicines?: No Do you have trouble getting transportation to medical appointments?: No Do you have trouble paying your heating and electricity bill?: No Do you have trouble taking care of your child, family member or friend?: No Do you have trouble with day-to-day activities such as bathing, preparing meals, shopping, managing finances, etc.?: No Are you currently unemployed and looking for a job?: No Are you interested in more education?: No Please select the resources that you would like help with: None THRIVE Score: 0 AUDIT C Alcohol Use Questionnaire (AUDIT-C) 1. How often do you have a drink containing alcohol?: Never 3. How often do you have six or more drinks on one occasion?: Never Total Score: 0 Score Reviewed/Action Taken: No DARIUSZ-7 AMB Questionnaire DARIUSZ-7 Date DARIUSZ - 7 assessed: 01/18/25 Feeling nervous, anxious, or on edge: 3 = Nearly every day Not being able to stop or control worryin = More than half the days Worrying too much about different things: 3 = Nearly every day Trouble relaxin = Several days Being so restless that it is hard to sit still: 1 = Several days Becoming easily annoyed or irritable: 1 = Several days Feeling afraid as if something awful might happen: 1 = Several days Total DARIUSZ-7 score (0-4 normal; 5-9 mild; 10-14 moderate; 15-21 severe): 12 Source: Developed by Drs. Eric Cortes, Bebe Ortiz, Franklyn Sandy and colleagues, with an educational frank from [employer]. DARIUSZ-7 Assessment Billing DARIUSZ-7 Assessment Tool: DARIUSZ-7 Assessment 35083 Review of Systems Narrative Review of Systems - Constitutional: Denies unintentional weight loss. - Eyes: Denies vision problems and reports a recent eye exam showed no significant change. - HEENT: Denies problems with hearing. - Cardiovascular: Denies chest pain or palpitations. - Respiratory: Denies shortness of breath. - Gastrointestinal: Denies black or bloody stools. - Neurological: Denies dizziness. - Sleep: Reports difficulty with sleep maintenance, stating she wakes frequently through the night but has no trouble falling asleep. Const All systems reviewed & are unremarkable except as noted in HPI and below Physical exam (Primary Care) Vital Signs: Last Vital Signs Temp 97.6 F 09/09/25 09:38 Pulse 76 09/09/25 09:38 Resp 14 09/09/25 09:38 BP 114/53 L 09/09/25 09:38 Pulse Ox 99 09/09/25 09:38 Oxygen Delivery Method Room Air 09/09/25 09:38 Care Plan Goal for BP management: <140/90 at Goal BMI result Body Mass Index 32.3 BMI Assessment/Plan discussion: High BMI High, discussed plan: lifestyle, weight reduction, dietary, physical activity, alcohol moderation and other Tobacco/Smoking Status: Tobacco use Status Tobacco use date assessed 06/07/25 09/09/25 09:39 Patient Tobacco Use Status Never used Tobacco 09/09/25 09:39 PHQ-9: PHQ-9 Score PHQ-9: Total score 0 09/09/25 09:51 Depression Screening Interpretation: Negative Thrive Assessment: Date of Thrive Assessment Date Thrive assessed 01/18/25 09/09/25 09:39 Narrative Physical Exam Appearance: Alert. Oriented X3. No acute distress. Head: Normal external exam. Normocephalic. Atraumatic. Eyes: Pupils are equal, round, and reactive to light. Extraocular movements intact. Conjunctiva and sclera normal. Eyelids normal. Ears: External auditory canal normal. Tympanic membranes normal. Throat: Pharynx normal. Uvula midline. Moist mucous membranes. Neck: Normal inspection. Neck supple. Full range of motion. No adenopathy. Thyroid Normal. No meningeal signs. No neck mass noted. Cardiovascular: Normal heart rate and rhythm. Heart sound normal. A little bit of the murmur still noted. Pulses normal throughout. Respiratory: No respiratory distress. Painless inspiration. Breath sounds normal. No wheezes/rales/rhonchi noted. Chest nontender. No accessory muscle usage noted or decreased air movement noted. Abdomen: Soft and nontender. Bowel sounds normal in all 4 quadrants. No distention noted. No organomegaly noted. No visible injury noted. Back: No costovertebral angle tenderness. Full range of motion noted. Skin: Skin warm and dry. Normal skin color. Normal skin turgor. No rashes/lesion s/lacerations noted. Extremities: No lower extremity edema. Extremities exhibit normal range of motion. Extremities nontender. Neuro: Oriented X 3. No motor deficit. No sensory deficit. Reflexes normal. Results Reviewed Results Reviewed: Results - Review of prior results: - Labs (from December): - Platelet Count: Mildly elevated. - Inflammatory Marker: Elevated at 38. - Comprehensive Metabolic Panel: Liver enzymes (AST, ALT, alkaline phosphatase) and total bilirubin (1.1) were slightly elevated. - Hemoglobin A1C: Normal. - Vitamin D: Noted to be very low on last check. - Cardiology Workup: - Comprehensive evaluation including an echocardiogram, stress test, and Holter monitor revealed evidence of nonsustained ventricular tachycardia (NSVT). Coding Level of Care Code Est Pt Level 4 (25762) Add On Problem Visit Only Diagnoses NSVT (nonsustained ventricular tachycardia) I47.29 Insomnia G47.00 Healthcare maintenance Z00.00 Additional Codes DARIUSZ-7 Assessment Billing - DARIUSZ-7 Assessment Tool: DARIUSZ-7 Assessment 23821 ([id number]) PHQ-9 - 07720 - PHQ-9 Billing: Yes ([id number]) Time Spent (min) 60 Assessment & Plan Assessment & Plan (1) NSVT (nonsustained ventricular tachycardia): Code(s): I47.29 - Other ventricular tachycardia Category: Medical Plan: The patient's dizziness has resolved following a dose reduction of metoprolol. She will continue her current cardiac medications and will continue to be followed by her food and beverage server, with an appointment scheduled for next June. A 2-3 week Holter monitor is planned prior to her cardiology visit. (2) Insomnia: Code(s): G47.00 - Insomnia, unspecified Category: Medical Plan: To address her difficulty with sleep maintenance, a prescription for trazodone 50 mg will be sent to the pharmacy. She is advised to start with 25 mg at bedtime and titrate up if needed. A home sleep study will be ordered to rule out sleep apnea as an underlying cause. (3) Healthcare maintenance: Code(s): Z00.00 - Encounter for general adult medical examination without abnormal findings Category: Medical Plan: Referrals will be sent for a mammogram and a bone density scan. A Cologuard test will be ordered for colon cancer screening, per her preference. She will follow up in late December for an annual physical exam. Repeat blood work, including a CBC and CMP, will be ordered for one week prior to her physical to re-evaluate her platelet count and liver enzymes. Plan Plan Patient was informed and verbally consented to the use of an ambient scribe for clinic note documentation during this visit. 1. Nonsustained Ventricular Tachycardia And Diastolic Dysfunction The patient's dizziness has resolved following a dose reduction of metoprolol. She will continue her current cardiac medications and will continue to be followed by her food and beverage server, with an appointment scheduled for june. A 2-3 week Holter monitor is planned prior to her cardiology visit. 2. Insomnia To address her difficulty with sleep maintenance, a prescription for trazodone 50 mg will be sent to the pharmacy. She is advised to start with 25 mg at bedtime and titrate up if needed. A home sleep study will be ordered to rule out sleep apnea as an underlying cause. 3. Health Maintenance Referrals will be sent for a mammogram and a bone density scan. A Cologuard test will be ordered for colon cancer screening, per her preference. She will follow up in late December for an annual physical exam. Repeat blood work, including a CBC and CMP, will be ordered for one week prior to her physical to re-evaluate her platelet count and liver enzymes. Discussion Notes I discussed the patient's 3-month follow-up visit with her. I acknowledged that her dizziness resolved after her metoprolol dose was reduced, explaining it was likely too potent at the previous dose given her diastolic dysfunction. We reviewed her cardiology plan, noting her stability and the plan for continued cardiology follow-up next year with a Holter monitor beforehand. I addressed her new complaint of insomnia by prescribing trazodone, and I counseled her to start with a low dose of 25 mg. I also explained the rationale for ordering a home sleep study to investigate for sleep apnea, informing her that a positive result would require further evaluation with pulmonology. We discussed her overdue health screenings, and she agreed to proceed with a mammogram, bone density scan, and a Cologuard test. I scheduled her for an annual physical in late December and arranged for her to have repeat blood work done prior to that visit to monitor her lab abnormalities. The patient understood the plan and had no further questions. Orders: Orders Complete Blood Count Auto Diff Today Z00.00 - Encounter for general adult medical examination without abnormal findings Comprehensive [place]. Panel Fast Today Z00.00 - Encounter for general adult medical examination without abnormal findings Erythrocyte Sedimentation Rate Today Z00.00 - Encounter for general adult medical examination without abnormal findings UA CC w/rflx Micro + Cult Today Z00.00 - Encounter for general adult medical examination without abnormal findings TSH reflex Free T4 Today Z00.00 - Encounter for general adult medical examination without abnormal findings XR DEXA axial skeleton Today M81.0 - Age-related osteoporosis without current pathological fracture MM screening mammo BI Today Z12.31 - Encounter for screening mammogram for malignant neoplasm of breast Microalbumin, Random (w Creat) Today Z00.00 - Encounter for general adult medical examination without abnormal findings C Reactive Protein Today Z00.00 - Encounter for general adult medical examination without abnormal findings Hemoglobin A1c Today Z00.00 - Encounter for general adult medical examination without abnormal findings Lipid Panel Today Z00.00 - Encounter for general adult medical examination without abnormal findings Magnesium Today Z00.00 - Encounter for general adult medical examination without abnormal findings Vitamin B12 and Folate Today Z00.00 - Encounter for general adult medical examination without abnormal findings Vitamin D 25-OH Total Today Z00.00 - Encounter for general adult medical examination without abnormal findings RT home sleep study Today G47.30 - Sleep apnea, unspecified Referrals Cologuard Test Z12.11 - Encounter for screening for malignant neoplasm of colon, Z12.12 - Encounter for screening for malignant neoplasm of rectum Medications: New trazodone 50 mg PO BEDTIME PRN 90 tabs 3RF sleep Patient Instructions: Patient Instructions - Take trazodone for sleep as prescribed. Start with half a tablet (25 mg) at bedtime. You can increase to a full tablet (50 mg) if needed. - You will be contacted to arrange a home sleep study. It is important to complete this test to check if a condition called sleep apnea is causing your sleep problems. - We will send referrals for you to get a mammogram (for breast cancer screening) and a bone density scan (to check for osteoporosis). Please schedule these appointments. - A Cologuard kit for colon cancer screening will be mailed to your home. Please follow the instructions to complete the test. - Continue taking your current medications, including metoprolol, vitamin D, and your multivitamin. You do not need any refills at this time. - Please get your blood work done about one week before your next appointment. - Your next appointment will be for your annual physical at the end of December.
[2025-09-09 09:38] VITALS: BP 114/53; PULSE 76; RESP 14; TEMP 36.4; O2SAT 99; BMI 32.3
== END 2025-09-09 10:11 | disposition home or self-care (01) ==
LOC: HO.HMCSH 09:30
PROVIDERS: PCP Physician Assistant Medical; Visit Provider Physician Assistant Medical
DX: I47.29 Other ventricular tachycardia (principal); G47.00 Insomnia, unspecified; Z00.00 Encounter for general adult medical examination without abnormal findings

== ENCOUNTER → 2025-09-09 09:30 | Outpatient (BNVA) | payer SELFPAY | PROVIDERS: PCP Physician Assistant Medical; Visit Provider Physician Assistant Medical | DX: Z00.00 Encounter for general adult medical examination without abnormal findings (principal); R79.89 Other specified abnormal findings of blood chemistry; R74.8 Abnormal levels of other serum enzymes; G47.00 Insomnia, unspecified; I47.29 Other ventricular tachycardia | CPT/HCPCS: 96127 ==